=== PATIENT | male | born 1955 | race Caucasian/White ===

== ENCOUNTER 2017-03-16 14:55 | Emergency (ER) | payer MEDICAID | END 2017-03-16 15:27 | disposition home or self-care (01) | LOC: D.ER 14:55 | DX: T30.0 Burn of unspecified body region, unspecified degree (principal); T25.221A Burn of second degree of right foot, initial encounter; T23.111A Burn of first degree of right thumb (nail), initial encounter; T31.0 Burns involving less than 10% of body surface ==